=== PATIENT | male | born 1965 | race Caucasian/White ===

== ENCOUNTER 2021-06-13 19:42 | Emergency (ER) | payer OTHER ==
[2021-06-13 21:06] LABS: HEMOGLOBIN 17.2 gm/dl (14.0-17.5); RED BLOOD COUNT 5.21 M/UL (4.20-5.50)
[2021-06-13 21:28] LABS: BUN/CREATININE RATIO 16 (0-10)
== END 2021-06-14 00:20 | disposition home or self-care (01) ==
LOC: ER1 19:42 → EDBD 19:42 → ER1 06-14 00:20
PROVIDERS: Emergency Medicine
DX: R07.2 Precordial pain (principal); I10 Essential (primary) hypertension
CPT/HCPCS: 71046; 80053; 82550; 82553; 83874; 83880; 84484; 85025; 93005; 94760; 99285; Q9967